=== PATIENT | female | born 1960 | race Caucasian/White ===

== ENCOUNTER 2017-03-24 13:24 | Day surgery (SDC) | payer OTHER ==
[~2017-03-24] VITALS: Ht 152.4 cm; Wt 64.9 kg
[2017-03-24] MEDS ORDERED: MVI (14:07)
[2017-03-24] MEDS ORDERED: CALCIUM (14:07)
[2017-03-24] MEDS ORDERED: OCALIVA (14:07)
[2017-03-24 14:14] VITALS: Ht 152.4 cm; Wt 64.9 kg
[2017-03-24 15:07] VITALS: BP 121/58; PULSE 69; RESP 18
[2017-03-24] MEDS ORDERED: PROPOFOL 20 ML ONE ×3 (15:08→15:46)
--- NOTE | 2017-03-24 15:59 | GILP ---
DATE OF PROCEDURE: 03/24/2017 NAME OF PROCEDURE: Colonoscopy. SURGEON: Kenan Jackson MD PREOPERATIVE DIAGNOSIS: Screening colonoscopy. POSTOPERATIVE DIAGNOSES 1. Colonoscopy all the way to the cecum. 2. Internal hemorrhoids. 3. No colon neoplasm was identified. INDICATION FOR THE PROCEDURE: Ms. Chrissy López is a 56-year-old female patient who was schedule d for screening colonoscopy. The procedure and possible complications were well explained to the patient. The patient understood and consented to the procedure. DESCRIPTION OF PROCEDURE: Under the influence of anesthesia, the colonoscope was carefully introduc ed in the rectum and under direct vision, it was advanced all the way to the cecum. FINDINGS: The patient had internal hemorrhoids. No colon neoplasm was identified. She tolerated the procedure very well and there was no complication from the procedure. At the end of the procedures, she was awake with stable vital signs and she was discharged home to the care of her family. IMPRESSION: 1. Colonoscopy all the way to the cecum. 2. Internal hemorrhoids. 3. No colon neoplasm was identified. PLAN: Screening colonoscopy in 10 years. Dictated By: KENAN MARRERO/YOANNA Conf#: [id number] DID#: [id number]
[2017-03-24 16:15] VITALS: BP 101/53; PULSE 58; RESP 19
== END 2017-03-24 17:30 | disposition home or self-care (01) ==
LOC: GIL 13:24
PROVIDERS: ATTEND Internal Medicine Gastroenterology
DX: Z12.11 Encounter for screening for malignant neoplasm of colon (principal); K64.8 Other hemorrhoids
CPT/HCPCS: 45378; Z7610